=== PATIENT | female | born 1995 | race Caucasian/White ===

== ENCOUNTER 2024-08-28 01:11 | Inpatient (IN) ==
[2024-08-28] MEDS ORDERED: OXYTOCIN 30 UNITS/NSS 30 UNITS/500 ML BAG IV PRN (01:35)
[2024-08-28] MEDS ORDERED: LIDOCAINE 1% LOCAL 20 ML VIAL INFIL PRN (01:35)
[2024-08-28] MEDS ORDERED: LACTATED RINGER'S 1,000 ML IV PRN (01:35)
[2024-08-28] MEDS: OXYTOCIN 30 UNITS/NSS 30 UNITS/500 ML BAG IV PRN (01:52)
--- NOTE | 2024-08-28 02:01 | Delivery Summary ---
Vaginal Delivery Summary Date of Service August 28, 2024 Vaginal Delivery Summary and 1st Degree LAC Spontaneous vaginal livery the patient arrived in active labor at 9 cm she had requested epidural however she rapidly progressed to fully dilated there was not time she ended up delivering with a baby in occiput anterior position there was a cord around the arm which is a bypassed after delivery of the head gentle traction on the baby live vigorous girl no excessive force used baby placed maternal abdomen cord clamped and cut cord blood obtained placenta delivered with traction IV Pitocin was started small first-degree tear repaired with 3-0 Vicryl no lidocaine was injected first sponge and instrument counts correct QBL per nursing record [facility] Vaginal Delivery Charge Delivery Type Details: and 1st Degree LAC
[2024-08-28] MEDS ORDERED: HYDROCORTISONE ACETATE 25 MG SUPP PR PRN (02:09)
[2024-08-28] MEDS ORDERED: DIPHTHER/TETAN/PERTUS Vaccine (Tdap, Adol/Adult) 0.5mL IM ONE (02:09)
[2024-08-28] MEDS ORDERED: BENZOCAINE 20% SPRY 85 APPLN/85 GM CAN EXT PRN (02:09)
[2024-08-28] MEDS: IBUPROFEN 600 MG TAB PO PRN (03:34)
[2024-08-28] MEDS: PRENATAL VITAMIN 1 TAB PO SCH (09:19)
[2024-08-28] MEDS: DOCUSATE SODIUM 100 MG CAP PO SCH (09:19)
[2024-08-28] MEDS: ACETAMINOPHEN 325 MG TAB PO PRN (21:22)
[2024-08-29 06:14] LABS: Hematocrit (blood only) 31.6 % (37.0-47.0); Hemoglobin 10.0 g/dl (12.0-16.0); Mean Corpuscular Hemoglobin 22.7 pg (25.0-34.0); Mean Corpuscular Volume 71.8 fL (80.0-100.0); Platelet Count 231 K/uL (130-400); RDW Standard Deviation 48.7 fL (36.4-46.3); Red Blood Count 4.40 M/uL (4.20-5.40); White Blood Count 11.28 K/ul (4.8-10.8)
--- NOTE | 2024-08-29 07:31 | Obstetrical Progress Note ---
Date of Service August 29, 2024 Assessment & Plan (1) care following vaginal delivery: Plan stable, dc home. instructions reviewed. f/u 6 wk pp check. breast/ rhpos/ ri. Subjective Ambulation: ambulating normally Voiding: no voiding problems Diet Tolerance:: regular diet Lochia:: Small Feeding Type:: breast feeding no pain issues. breast feeding going well. Constitutional: + as per Subjective / HPI Physical Exam Constitutional WD/WN, vitals as above Respiratory normal respiratory effort, lungs clear to auscultation Cardiovascular Rate/Rhythm: regular rate and regular rhythm Gastrointestinal (Abdomen) Inspection/Auscultation: abdomen normal to inspection Percussion/Palpation: abdomen soft Fundus firm 2cm down Musculoskeletal nt calves no edema Neurologic grossly normal Psychiatric A+Ox3, euthymic affect Results & Data Vital Signs (Past 12 Hours) Vital Signs Temp Pulse Resp BP Pulse Ox O2 Del Method 08/28/24 23:10 98.1 F 82 14 100/48 L 97 Room Air
[2024-08-29 08:00] VITALS: BP 116/66; RESP 16; TEMP 98.2; O2SAT 98
[2024-08-29 10:02] VITALS: PULSE 77
--- NOTE | 2024-08-30 08:48 | Coding Query ---
CODING QUERY To promote full compliance with coding requirements relating to patient care, provider participation is requested in all cases of qa software tester uncertainty. Please assist us with the question(s) below: Coding Question(s): Please indicate weeks of gestation. 39 Physician's Response(s): Thank you Yoli Khan Principal Diagnosis: "that condition established after study, to be chiefly responsible for occasioning the admission of the patient to the hospital for care." Co-Existing Principal Diagnosis: "when two or more diagnoses equally meet the criteria for principal diagnosis as determined by the circumstances of admission, diagnostic work up, and/or therapy provided, and the Alphabetic Index, Tabular List, or another coding guideline does not provide sequencing direction, any one of the diagnoses may be sequenced first." "When the physician has documented what appears to be a current diagnosis in the body of the record, but has not included the diagnosis in the final diagnostic statement, the physician should be asked whether the diagnosis should be added." (Source [facility] 2 QTR90. p3-4) DAVID
== END 2024-08-29 16:45 | disposition home or self-care (01) | DRG 807 ==
LOC: OPB 01:11 → 4S1 01:24 → 4E1 05:06